=== PATIENT | male | born 1950 | race Caucasian/White ===

== ENCOUNTER 2019-07-26 19:29 | Emergency (ER) | payer OTHER ==
--- OUTSIDE RECORDS SUMMARY | 2019-07-26 19:33 | XMS REPORT | Summary of Care ---
:1950 Author Organization [facility] - Health Address [address] [place] [address] Care Team Providers Name Role Phone Janet Presley Adenike Primary Care Provider Encounter Details Date Type Department Care Team Description 02/23/2019 Orders Only [facility] Doctor Unassigned, No [address] [facility] [place] [address] [address] [place] [address] Allergies No Known Allergiesdocumented as of this encounter (statuses as of 02/23/2019) Medications Medication Sig Dispensed Refills Start Date End Date Status lisinopril 10 mg tablet Take 10 mg by 0 Active mouth daily. metoprolol succinate XL Take 50 mg by 0 Active 50 mg 24 hr tablet mouth daily. cyclobenzaprine 10 mg Take 1 tablet 10 tablet 0 01/22/2019 Active tabletIndications: Acute by mouth at left-sided low back pain bedtime. without sciatica naproxen 500 mg Take 1 tablet 20 tablet 0 01/22/2019 Active tabletIndications: Acute by mouth 2 left-sided low back pain (two) times without sciatica daily with meals. documented as of this encounter (statuses as of 02/23/2019) Active Problems Not on filedocumented as of this encounter (statuses as of 02/23/2019) Social History Tobacco Use Types Packs/Day Years Used Date Never Smoker Smokeless Tobacco: Never Used Alcohol Use Drinks/Week oz/Week Comments Yes occassional Sex Assigned at Date Recorded Not on file Job Start Date Occupation Industry Not on file Not on file Not on file Travel History Travel Start Travel End No recent travel history available. documented as of this encounter Last Filed Vital Signs Not on filedocumented in this encounter Plan of Treatment Health Maintenance Due Date Last Done Comments HEPATITIS C (HCV) SCREEN 1950 DTaP,Tdap,and Td Vaccines (1 - Tdap) 1970 COLONOSCOPY 2001 Zoster Recombinant Vaccine (SHINGRIX) (1 of 2) 2001 PNEUMOCOCCAL VACCINES 65+ (1 of 2 - PCV13) 2016 INFLUENZA VACCINE (#1) 2019 documented as of this encounter Procedures Procedure Name Priority Date/Time Associated Diagnosis Comments ASSIGNMENT OF BENEFITS Routine 02/23/2019 2:04 PM CDT documented in this encounter Results Not on filedocumented in this encounter Insurance Payer Benefit Plan / Subscriber ID Effective Dates Phone Address Type Group MEDICARE MEDICARE PART xxxxxxxxxxx 2016-Jose [phone] [address] Medicare A & B t [id number] [id number] documented as of this encounter
--- OUTSIDE RECORDS SUMMARY | 2019-07-26 19:33 | XMS REPORT | Summary of Care ---
:1950 Author Organization [facility] Address [address] [place] [address] Care Team Providers Name Role Phone Sakina Janet Adenike Primary Care Provider Reason for Visit Reason Comments Foot Pain localized lft foot pain FOOT SWELLING Encounter Details Date Type Department Care Team Description 02/23/2019 Nurse Visit [facility] Unknown, Attending Pain of left lower extremity (Primary Dx); Urgent Care Nurse, [facility] Swelling of left foot [address] [place] [phone] Allergies No Known Allergiesdocumented as of this [...] of this encounter Last Filed Vital Signs Vital Sign Reading Time Taken Comments Blood Pressure 111/53 02/23/2019 2:50 PM CDT Pulse 94 02/23/2019 2:50 PM CDT Temperature 36.9 C (98.5 F) 02/23/2019 2:50 PM CDT Respiratory Rate 17 02/23/2019 2:50 PM CDT Oxygen Saturation 96% 02/23/2019 2:50 PM CDT Inhaled Oxygen Concentration - - Weight 130.9 kg (288 lb 9.6 oz) 02/23/2019 2:50 PM CDT Height 185.4 cm (6' 1") 02/23/2019 2:50 PM CDT Body Mass Index 38.08 02/23/2019 2:50 PM CDT documented in this encounter Progress Notes Maine Yoo RN - 02/23/2019 2:00 PM CDT68 year-old male presents w and family c/o 9/10 localized pain in lft dorsal foot with associated swelling since and worsening. Patient reports taking a [address] last Sun; denies any injuries; denies any h/o DVTs. Patient vs assessed and stable; lft foot swelling observed and pain reported with palpation. Per provider, patient and advised to seek further evaluation and care of s/s at ER of choice. Patient and state that they will go across the road to [facility] ER. Patient assisted to car by wheelchair. documented in this encounter Plan of Treatment Health Maintenance Due Date Last Done Comments HEPATITIS C (HCV) SCREEN 1950 DTaP,Tdap,and Td Vaccines (1 - Tdap) 1970 COLONOSCOPY 2001 Zoster Recombinant Vaccine (SHINGRIX) (1 of 2) 2001 Medicare Wellness Visit 2016 PNEUMOCOCCAL VACCINES 65+ (1 of 2 - PCV13) 2016 INFLUENZA VACCINE (#1) 2019 documented as of this encounter Results Not on filedocumented in this encounter Visit Diagnoses Diagnosis Pain of left lower extremity - Primary Swelling of left foot documented in this encounter Insurance Payer Benefit Plan / Subscriber ID Effective Dates Phone Address Type Group MEDICARE MEDICARE PART xxxxxxxxxxx 2016-Jose [phone] Medicare A & B t 2 [id number] [place] [id number] On license of [facility] (Home) [address] (Work) [id number] documented as of this encounter
--- OUTSIDE RECORDS SUMMARY | 2019-07-26 19:33 | XMS REPORT | Summary of Care ---
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 Hospital, Clinic, or Other Ordered Dose Route Frequency Start Date End Date Status Facility Administered Medication ketorolac (TORADOL) 60 mg IM ONCE 01/22/2019 01/22/2019 Ended injection 60 mgIndications: Acute left-sided low back pain without sciatica documented as of this encounter (statuses as of 01/22/2019) Active Problems Not on filedocumented as of this encounter (statuses as of 01/22/2019) Social History Tobacco Use Types Packs/Day Years [...] Sign Reading Time Taken Comments Blood Pressure 134/82 01/22/2019 6:20 PM CDT Pulse 93 01/22/2019 6:18 PM CDT Temperature 36.9 C (98.4 F) 01/22/2019 6:18 PM CDT Respiratory Rate 18 01/22/2019 6:18 PM CDT Oxygen Saturation 95% 01/22/2019 6:18 PM CDT Inhaled Oxygen Concentration - - Weight 135.9 kg (299 lb 9.6 oz) 01/22/2019 6:18 PM CDT Height 188 cm (6' 2") 01/22/2019 6:18 PM CDT Body Mass Index 38.47 01/22/2019 6:18 PM CDT documented in this encounter Patient Instructions Patient InstructionsKendra Cody FNP - 01/22/2019 6:15 PM CDT Self-Care for Low Back Pain Most people have low back pain now and then. In many cases, it isnt serious and self-care can help. Sometimes low back pain can be a sign of a bigger problem. Call your healthcare provider if your pain returns often or gets worse over time. For the long-term care of your back, get regular exercise,lose any excess weight and learn good posture. Take a short rest Lying down during the day may be helpful for short periods of time if severe pain increases with sitting or standing. Long-term bed rest could be damaging. Reduce pain and swelling Cold reduces swelling. Both cold and heat can reduce pain. Protect your skin by placing a towel between your body and the ice or heat source. For the first few days, apply an ice pack for 15 to20 minutes, several times a day. To make a cold pack, put ice cubes in a plastic bag that seals at the top. After the first few days, try heat for 15 minutes at a time to ease pain. Never sleep on a heating pad. Lndw-wni-lcpkflr medicine can help control pain and swelling. Try aspirin or a non-steroidal anti-inflammatory medicine (NSAID) such as ibuprofen. Exercise Exercise can help your back heal. It also helps your back get stronger and more flexible, preventingany reinjury. Ask your healthcare provider about specific exercises for your back. Use good posture to avoid reinjury When moving, bend at the hips and knees. Dont bend at the waist or twist around. When lifting, keep the object close to your body. Lift heavy items using your legs, not your back. Dont try to lift more than you can handle. When sitting, keep your lower back supported. Use a rolled-up towel as needed. When to call your healthcare provider Seek medical care right away if: You can't stand or walk. You have a temperature over 100.4F (38.0C) You have frequent, painful, or bloody urination. You have severe abdominal pain. You have a sharp, stabbing pain. Your pain is constant. You have pain, tingling, or numbness in your leg. You feel pain in a new area of your back. You notice that the pain isnt decreasing after more than a week. Date Last Reviewed: 08/17/201719995571-4636 [employer]. [address] [place] [address]. All rights reserved. This information is not intended as a substitute for professional medical care. Always follow your healthcare professional's instructions. Back Sprain or Strain Injury to the muscles (strain) or ligaments (sprain) around the spine canbe troubling. Injury may occur after a sudden forceful twisting or bending force such as in a car accident, after a simple awkward movement, or after lifting something heavy with poor body positioning. Inany case, muscle spasm is often present and adds to the pain. Thankfully, most people feel better in 1 to 2 weeks, and most of the rest in 1 to 2 months. Most people can remain active. Unless you had a forceful or traumatic physical injury such asa car accidentor fall, X-rays may not be ordered for the first evaluation of a back sprain or strain. If pain continues and does not respond to medical treatment, your healthcare provider may then order X-rays and other tests. Home care The following guidelines will help you care for your injury at home: When in bed, try to find a comfortable position. A firm mattress is best. Try lying flat on your back with pillows under your knees. You can also try lying on your side with your knees bent up toward your chest and a pillow between your knees. Don't sit for long periods. Try not to take long car rides or take other trips that have you sitting for a long time. This puts more stress on the lower back than standing or walking. During the first 24 to 72 hours after an injury or flare-up, apply an ice pack to the painful area for 20 minutes. Then remove it for 20 minutes. Do this for60 to 90 minutes, or several times a day. This will reduce swelling and pain. Be sure to wrap the ice pack in a thin towel or plastic to protect your skin. You can start with ice, then switch toheat. Heat from a hot shower, hot bath, or heating pad reduces pain and works well for muscle spasms. Put heat on the painful area for 20 minutes, then removefor 20 minutes.Do this for 60to 90 minutes, or several times a day. Do not use a heating pad while sleeping. It can burn the skin. You can alternate theice and heat. Talk with your healthcare provider to find out the best treatment or therapy for your back pain. Therapeutic massage will help relax the back muscles without stretching them. Be aware of safe lifting methods. Do not lift anything over 15 pounds until all of the pain is gone. Medicines Talk to your healthcare provider before using medicines, especially if you have other health problems or are taking other medicines. You may use acetaminophen or ibuprofen to control pain, unless another pain medicine was prescribed. If you have chronic conditions like diabetes, liver or kidney disease, stomach ulcers, or gastrointestinal bleeding, or are taking blood-thinner medicines, talk with your doctor before taking any medicines. Be careful if you are given prescription medicines, narcotics, or medicine for muscle spasm. Theycan cause drowsiness, and affect your coordination, reflexes, and judgment. Do not drive or operate heavy machinery when taking these types of medicines. Only take pain medicine as prescribed by your healthcare provider. Follow-up care Follow up with your healthcare provider, or as advised. You may need physical therapy or more testsif your symptoms get worse. If you had X-rays your healthcare provider may be checking for any broken bones , breaks, or fractures. Bruises and sprains can sometimes hurt as much as a fracture. These injuries can take time to healcompletely. If your symptoms don t improve or they get worse, talk with your healthcare provider. You may need a repeat X-ray or other tests. Call 911 Call 911 if any of the following occur: Trouble breathing Confused Very drowsy or trouble awakening Fainting or loss of consciousness Rapid or very slow heart rate Loss of bowel or bladder control When to seek medical advice Call your healthcare provider right away if any of the following occur: Pain gets worse or spreads to your arms or legs Weakness or numbness in one or both arms or legs Numbness in the groin or genital area Date Last Reviewed: 11/18/201519998059-1479 [employer]. [address] [place] [address]. All rights reserved. This information is not intended as a substitute for professional medical care. Always follow your healthcare professional's instructions. documented in this encounter Progress Notes Laurie Kaplan RN - 01/22/2019 6:15 PM CDT68 year old male has been identified by and name. Verbal consent has been obtained by patient to have an injection, as ordered by the provider. The site was cleaned with an alcohol swab and given intramuscularly (IM). A band aid dressing was then applied to the injection site. The patient tolerated the procedure well and was observed for 20 minutes after the injection for possible reaction. Patient provided with preferred teaching of verbal information on Anaphylaxis. Shows readiness to learn. Verbal/Written instruction teaching provided. Individual is able to read and verbalizes understanding of teaching provided. Signs and Symptoms of Anaphylaxis (severe allergic reaction) are: Tingling, itching or metallic taste in mouth; hives; difficulty breathing; swelling and/ or itching of mouth and/or throat; diarrhea, vomiting, cramps and stomach pain; paleness; loss of consciousness. IF YOU HAVE ANY OF THE SYMPTOMS ABOVE, ACT FAST !!! CALL 911 IMMEDIATELY IF YOU HAVE A PRESCRIBED EPI-PEN PLEASE USE IT NOW. Kendra Valenzuela FNP - 01/22/2019 6:15 PM CDT Cc: Chief Complaint Patient presents with Back Pain lower back pain- left side pain that radiates to leg Aly Zimmerman is a 68 year old male that presents to the clinic for left lower back pain radiating to left thigh since last Monday. 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 Back Pain Location: Lumbar spine Quality: Aching and shooting Radiates to: L posterior upper leg Pain severity: Moderate Onset quality: Sudden Duration: 5 days Timing: Constant Progression: Worsening Chronicity: New Context: lifting heavy objects Context: not falling, not recent illness and not recent injury Relieved by: Nothing Worsened by: Movement Ineffective treatments: Celebrex, Lidocaine patch, and hydrocodone Associated symptoms: no fever, no numbness and no weakness Risk factors: obesity Allergies Aly has No Known Allergies. Medications Outpatient Medications Prior to Visit Medication Sig Dispense Refill lisinopril 10 mg tablet Take 10 mg by mouth daily. metoprolol succinate XL 50 mg 24 hr tablet Take 50 mg by mouth daily. No facility-administered medications prior to visit. Histories Past Medical History: Diagnosis Date Hypertension Past Surgical History: Procedure Laterality Date BICEP TENDON REPAIR Bilateral HERNIA REPAIR SHOULDER ARTHROSCOPY TOTAL KNEE ARTHROPLASTY Bilateral Social History Socioeconomic History Marital status: Spouse name: Not on file Number of children: Not on file Years of education: Not on file Highest education level: Not on file Occupational History Not on file Social Needs Financial resource strain: Not on file Food insecurity: Worry: Not on file Inability: Not on file Transportation needs: Medical: Not on file Non-medical: Not on file Tobacco Use Smoking status: Never Smoker Smokeless tobacco: Never Used Substance and Sexual Activity Alcohol use: Yes Comment: occassional Drug use: Not on file Sexual activity: Not on file Lifestyle Physical activity: Days per week: Not on file Minutes per session: Not on file Stress: Not on file Relationships Social connections: Talks on phone: Not on file Gets together: Not on file Attends quaker service: Not on file Active member of club or organization: Not on file Attends meetings of clubs or organizations: Not on file Relationship status: Not on file Intimate partner violence: Fear of current or ex partner: Not on file Emotionally abused: Not on file Physically abused: Not on file Forced sexual activity: Not on file Other Topics Concern Not on file Social History Narrative Not on file No family history on file. Review of Systems Constitutional: Negative for chills, fatigue and fever. Musculoskeletal: Positive for back pain (left lower). Negative for arthralgias, joint swelling and myalgias. Skin: Negative for rash. Neurological: Negative for syncope, weakness and numbness. Psychiatric/Behavioral: Negative for agitation and confusion. Vital Signs BP 134/82 | Pulse 93 | Temp 36.9 C (98.4 F) (Oral) | Resp 18 | Ht 6' 2" (1.88 m) | Wt 299 lb 9.6 oz (135.9 kg) | SpO2 95% | BMI 38.47 kg/m Physical Exam Constitutional: He is oriented to person, place, and time. He appears well- developed and well-nourished. No distress. HENT: Head: Normocephalic and atraumatic. Eyes: Conjunctivae are normal. Neck: Normal range of motion. Cardiovascular: Normal rate, regular rhythm, normal heart sounds and intact distal pulses. Pulmonary/Chest: Effort normal and breath sounds normal. Musculoskeletal: Cervical back: He exhibits normal range of motion and no bony tenderness. Thoracic back: He exhibits no bony tenderness. Lumbar back: He exhibits decreased range of motion and tenderness. He exhibits no bony tenderness and no deformity. Back: Negative straight-leg raise test bilaterally. Neurological: He is alert and oriented to person, place, and time. He has normal strength. No sensory deficit. Gait normal. Skin: Skin is warm and dry. No rash noted. Psychiatric: He has a normal mood and affect. His behavior is normal. Thought content normal. Nursing note and vitals reviewed. Assessment/Plan 1. Acute left-sided low back pain without sciatica - reassured patient based on description of symptoms and exam findings, back pain appears to be muscular. - ketorolac (TORADOL) injection 60 mg - cyclobenzaprine 10 mg tablet; Take 1 tablet by mouth at bedtime. Dispense: 10 tablet; Refill: 0 - naproxen 500 mg tablet; Take 1 tablet by mouth 2 (two) times daily with meals. Dispense: 20 tablet; Refill: 0 - counseled patient to avoid lifting heavy objects, rest for a few days, then return to normal activity. - educated to use heating pad over area for comfort. - educated about back stretches/exercises to perform. - may take acetaminophen with Naproxen for pain. - may use lidocaine patches/ Salon Pas patches PRN for pain. - Advised to follow up with PCP, return to Urgent Care, or go to the nearest Emergency Department sooner for any new, worsening, persistent, or concerning symptoms. Plan of care, desired health behaviors, goals, and medication discussed with patient. Education resources provided and reviewed with AVS. Patient/guardian/family verbalized understanding & agrees to plan of care. This visit did not involve counseling and coordination that comprised more than 50% of the visit time. If applicable, the [place] [employer] database was accessed to review any controlled substance prescription claims data. The [employer] prescription claims data in [facility] was reviewed to assess patient compliance with the medication treatment plan. YAQUELIN Ramos 01/22/2019 6:45 PM documented in this encounter Plan of Treatment Health Maintenance Due Date Last Done Comments HEPATITIS C (HCV) SCREEN 1950 DTaP,Tdap,and Td Vaccines (1 - Tdap) 1970 COLONOSCOPY 2001 Zoster Recombinant Vaccine (SHINGRIX) (1 of 2) 2001 PNEUMOCOCCAL VACCINES 65+ (1 of 2 - PCV13) 2016 INFLUENZA VACCINE 02/17/2019 documented as of this encounter Results Not on filedocumented in this encounter Visit Diagnoses Diagnosis Acute left-sided low back pain without sciatica - Primary documented in this encounter Administered Medications Medication Order MAR Action Action Date Dose Rate Site ketorolac (TORADOL) Given 01/22/2019 6:39 PM 60 mg Left injection 60 mg CDT Dorsogluteal-IM 60 mg, Intramuscular, ONCE, 1 dose, 01/22/19 at 1845, Routine, 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 Medicare A & B t 2 [id number] [phone] [facility] (Home) [address] (Work) [id number] documented as of this encounter
--- OUTSIDE RECORDS SUMMARY | 2019-07-26 19:33 | XMS REPORT ---
:1950 Author Organization [facility] Address [facility] [address] [place] [address] Care Team Providers Name Role Phone Unavailable Unavailable Unavailable Payers Payer Name Policy Type Policy Number Effective Date Expiration Date Problems This patient has no known problems. Allergies, Adverse Reactions, Alerts Allergy Allergy Status Severity Reaction(s) Onset Inactive Treating Comments Name Type Date Date Clinician No Known DA Active U 2019-02 Drug -24 Allergies 00:00:0 0 No Known DA Active U 2019-02 Drug -23 Allergies 00:00:0 0 No Known DA Active U 2018-09 Drug -02 Allergies 00:00:0 0 SEASONAL DA Active RI 2018-09 ALLERGIES -02 00:00:0 0 No Known DA Active U 2018-04 Drug -27 Allergies 00:00:0 0 No Known DA Active U 2016-01 Drug -14 Allergies 00:00:0 0 Medications This patient has no known medications. Results Test Description Test Time Test Comments Text Results Atomic Results Result Comments - XR FLUORO FOR SPINE 2019-03-12 10:51:00 Patient Name: ROYAL YOLY SANTOYO INJ Unit No: [id number] EXAMS: CPT CODE: [id number] XR FLUORO FOR SPINE INJ 91649 LUMBAR TRANSFORAMINAL INJECTION REFERRING PHYSICIAN: PREOPERATIVE DIAGNOSIS: Degenerative Lumbar Disc Disease. POSTOPERATIVE DIAGNOSIS: Right lumbar radiculopathy PROCEDURES PERFORMED 1. Fluoroscopically guided needle localization of the right L3, right L4, right L5, right S1 spinal nerve/nerves with transforaminal epidural steroid injection/injections. 2. Transforaminal epidurogram/epidurograms at right L3, right L4, right L5, right S1. FINDINGS: Poor filling all. Concordant provocation right L4 hip, right L5 leg. Pain relief-100%. ANTIBIOTIC: Cefazolin ESTIMATED BLOOD LOSS: Minimal ANESTHESIA: (TIVA )Total intravenous anesthetic (patient intolerant to sedatives and hypnotics) COMPLICATIONS: None DETAILS OF PROCEDURE: After obtaining stable vital signs, informed consent and IV access, with no known contraindications to proceeding, the patient was taken to the fluoroscopy suite and placed in a prone position with all extremities padded and appropriate monitors placed. A sterile prep and drape was performed over the lumbosacral spine. Using fluoroscopic visualization at each level the insertion site was marked for a paravertebral approach to the foramen. Using standard technique, a 25 gauge needle was advanced to the base of the pedicle. In AP view, final positioning was obtained outside the 6 on the clock position on the pedicle. Then, 1 ml of Isovue-300 contrast was injected to produce the epidurograms. No paresthesias were elicited with needle insertion or injection and there were no signs of intravascular or intrathecal uptake. Then, with 1 ml of 4% lidocaine and 10 mg of triamcinolone was injected incrementally with frequent negative aspirations. There were no signs of intravascular or intrathecal uptake. Each subsequent level was done using the same technique and medications. The patient's vital signs remained stable. The patient was taken to the PACU in good condition. at 1051 Reported and signed by: Jack Jones M.D. [facility] NAME: ROYAL YOLY SANTOYO [address] [facility] PHYS: DOCUD - Jack Jones MD [place], [place] [address] : 1950 AGE: 68 SEX: M LOC: [facility] PHONE #: [phone] EXAM DATE: 03/12/2019 STATUS: REG [facility] FAX #: [phone] RAD #: D/C DT PAGE 1 Signed Report (CONTINUED) Patient Name: ROYAL YOLY SANTOYO Unit No: [id number] EXAMS: CPT CODE: [id number] XR FLUORO FOR SPINE INJ 83651 <Continued> CC: Jack Jones MD Technologist: KEN BRUNO RT(R) Transcribed D/ (1059) t.[email or web address] [facility] NAME: ROYAL YOLY SANTOYO [address] [facility] PHYS: Jack Kaminski MD [place], [place] [address] : 1950 AGE: 68 SEX: M LOC: [place] PHONE #: [phone] EXAM DATE: 03/12/2019 STATUS: REG [facility] FAX #: [phone] RAD #: D/C DT PAGE 2 Signed Report Patient Name: ROYAL YOLY SANTOYO Unit No: [id number] EXAMS: CPT CODE: [id number] XR FLUORO FOR SPINE INJ 55455 <Continued> Orig Print D/T: S: 03/12/2019 (6482) [facility] NAME: ROYAL YOLY SANTOYO [address] [facility] PHYS: Jack Kaminski MD [place], [place] [address] : 1950 AGE: 68 SEX: M LOC: [place] PHONE #: [phone] EXAM DATE: 03/12/2019 STATUS: REG [facility] FAX #: [phone] RAD #: D/C DT PAGE 3 Signed Report - MRI L-SPINE W/O CONT 2019-02-26 00:42:00 Patient Name: ROYAL YOLY SANTOYO Unit No: [id number] EXAMS: CPT CODE: [id number] MRI L-SPINE W/O CONT [id number] MRI OF THE LUMBAR SPINE: DIAGNOSIS: 1. At L1-2, moderate to marked disc degeneration. No central canal or foraminal stenosis. 2. At L2-3, marked disc degeneration. No central canal or foraminal stenosis. Solid interbody fusion. 3. At L3-4, moderate disc degeneration. Mild central canal stenosis. Moderate left foraminal right foramen is within normal limits. 4. At L4-5, moderate to marked disc degeneration. Moderate central canal stenosis. Mild to moderate facet arthropathy. 3 mm left foraminal disc protrusion. Moderate to marked left foraminal and mild to moderate right foraminal stenosis. 5. At L5-S1, marked disc degeneration. Moderate central canal stenosis. Moderate left facet and mild right facet arthropathy. There is a 4 mm right foraminal disc osteophyte complex which slightly impinges the right L5 nerve root. Marked right foraminal stenosis. Mild left foraminal stenosis. 6. There is a moderate to marked dextroscoliosis of the lumbar spine. 7. High signal lesion in the right renal pelvis has an appearance compatible with a intrapelvic cyst. COMMENT: COMPARISON: No prior exams available. Sagittal T1, T2 and STIR and axial T1 and T2-weighted sequences are obtained of the lumbar spine. The lumbar vertebrae are within normal limits in signal. The findings are as above. The conus is in the expected location. at 0042 Reported and signed by: Jaden Romero MD CC: Jack Jones MD Technologist: Elida Mckoy, RT(R) Transcribed D/ (41) [facility] NAME: ROYAL YOLY SANTOYO [address] [place] [address] PHYS: Jack Kaminski MD : 1950 AGE: 68 SEX: M [place] [phone] LOC: Y.MRI PHONE #: [phone] EXAM DATE: 02/25/2019 STATUS: DEP CLI FAX #: [phone] RAD #: D/C DT PAGE 1 Signed Report Patient Name: ROYAL YOLY SANTOYO Unit No: [id number] EXAMS: CPT CODE: [id number] MRI L-SPINE W/O CONT 09563 <Continued> Orig Print D/T: S: 02/26/2019 (44) [facility] NAME: ROYAL YOLY SANTOYO [address] [place] [address] PHYS: Jack Kaminski MD : 1950 AGE: 68 SEX: M [place] [phone] LOC: Y.MRI PHONE #: [phone] EXAM DATE: 02/25/2019 STATUS: [facility] FAX #: [phone] RAD #: D/C DT PAGE 2 Signed Report BASIC METABOLIC PANEL 2018-10-09 06:36:00 Test Item Value Reference Range Comments SODIUM (test code=NA) 138 mmol/L 136-145 POTASSIUM (test code=K) 4.5 mmol/L 3.5-5.1 CHLORIDE (test code=CL) 103.0 mmol/L 98-107 CARBON DIOXIDE (test code=CO2) 25.9 mmol/L 21-32 GLUCOSE (test code=GLU) 80 mg/dL 70-110 BLOOD UREA NITROGEN (test 19 mg/dL 7-18 code=BUN) GLOMERULAR FILTRATION RATE (test 70.5 >60 Unit of measure: mL/min/1.73 code=GFR) [id number] Range:Healthy Adults >90 mL/min/1.73 m2 For Chronic Kidney Disease: Stage II Mild Decrease in GFR 60-90 Stage III Moderate Decrease in GFR 30-59 Stage IV Severe Decrease in GFR 15-29 Stage V Kidney Failure <15 CREATININE (test code=CREAT) 1.05 mg/dL 0.55-1.30 CALCIUM (test code=CA) 7.9 mg/dL 8.2-10.1 HGB [id number] 05:59:00 Test Item Value Reference Range Comments HEMOGLOBIN (test code=HGB) 14.4 g/dL 12-16 HEMATOCRIT (test code=HCT) 44.8 % 37-47 COMPREHENSIVE METABOLIC [id number] 10:44:00 Test Item Value Reference Range Comments SODIUM (test code=NA) 139 mmol/L 136-145 POTASSIUM (test code=K) 4.5 mmol/L 3.5-5.1 CHLORIDE (test code=CL) 102.0 mmol/L 98-107 CARBON DIOXIDE (test code=CO2) 26.8 mmol/L 21-32 GLUCOSE (test code=GLU) 83 mg/dL 70-110 BLOOD UREA NITROGEN (test 17 mg/dL 7-18 code=BUN) GLOMERULAR FILTRATION RATE 72.0 >60 Unit of measure: (test code=GFR) mL/min/1.73 [id number] Range:Healthy Adults >90 mL/min/1.73 m2 For Chronic Kidney Disease: Stage II Mild Decrease in GFR 60-90 Stage III Moderate Decrease in GFR 30-59 Stage IV Severe Decrease in GFR 15-29 Stage V Kidney Failure <15 CREATININE (test code=CREAT) 1.03 mg/dL 0.55-1.30 TOTAL PROTEIN (test code=PROT) 7.2 g/dL 6.4-8.2 ALBUMIN (test code=ALB) 3.7 g/dL 3.4-5.0 GLOBULIN (test code=GLOB) 3.5 g/dL 2.2-4.2 ALBUMIN/GLOBULIN RATIO (test 1.1 0.7-2.0 code=A/G) CALCIUM (test code=CA) 8.9 mg/dL 8.2-10.1 BILIRUBIN TOTAL (test 0.45 mg/dL 0.2-1.00 code=BILT) SGOT/AST (test code=AST) 24.0 U/L 15-37 SGPT/ALT (test code=ALT) 25.0 U/L 12-78 Please note new normal range. ALKALINE PHOSPHATASE TOTAL 65 U/L 46-116 (test code=ALKP) PROTHROMBIN [id number] 10:36:00 Test Item Value Reference Range Comments PROTHROMBIN TIME PATIENT 12.1 secs 10.1-12.5 (test code=PTP) INTERNATIONAL NORMAL RATIO 1.07 <2.0 RECOMMENDED THERAPEUTIC RANGE (test code=INR) FOR ORAL ANTICOAGULANTTREATMENT: CONDITION INRProphylaxis of venous thrombosis in 2.0 - 3.0 high-risk medical or surgical patientsTreatment of venous thrombosis 2.0 - 3.0Prevention of embolism 2.0 - 3.0Prevention of recurrent embolism, or 3.0 - 4.5 patients with mechanical prosthetic intravascular valves IS PATIENT ON ANTICOAGULANTS ? NVas Lab been notified if Patient is on Heparin Drip? NOIf Yes, orderCBC, OCCULT BLOOD, PT every other day NTHROMBOPLASTIN TIME [id number] 10:36:00 Test Item Value Reference Range Comments PTT ACTIVATED (test code=APTT) 32.9 secs 24.9-37.0 IS PATIENT ON ANTICOAGULANTS ? NHas Lab been notified if Patient is on Heparin Drip? NOIf Yes, orderCBC, OCCULT BLOOD, PT every other day NCBC W/AUTO [id number] 10:30:00 Test Item Value Reference Range Comments WHITE BLOOD CELL (test code=WBC) 7.3 K/mm3 5.7-10.5 RED BLOOD CELL (test code=RBC) 5.44 M/mm3 4.2-5.4 HEMOGLOBIN (test code=HGB) 16.6 g/dL 12-16 HEMATOCRIT (test code=HCT) 51.2 % 37-47 MEAN CELL VOLUME (test code=MCV) 94 fL 80-98 MEAN CELL HGB (test code=MCH) 30.5 pg 27-34 MEAN CELL HGB CONCENTRATION (test code=MCHC) 32.4 g/dL 30.8-34.1 RED CELL DISTRIBUTION WIDTH (test code=RDW) 14.4 % 11-16 PLT (test code=PLT) 267 K/mm3 130-400 MEAN PLATELET VOLUME (test code=MPV) 8.9 fL 8.9-12.1 NEUTROPHIL % (test code=NT%) 67.2 % 45-70 LYMPHOCYTE % (test code=LY%) 18.7 % 20-40 MONOCYTE % (test code=MO%) 10.3 % 3-10 EOSINOPHIL % (test code=EO%) 1.9 % 1-5 BASOPHIL % (test code=BA%) 1.2 % 0.0-1.1 NEUTROPHIL # (test code=NT#) 4.87 K/mm3 2.00-7.50 LYMPHOCYTE # (test code=LY#) 1.36 K/mm3 1.50-4.00 MONOCYTE # (test code=MO#) 0.75 K/mm3 0.2-0.8 EOSINOPHIL # (test code=EO#) 0.14 K/mm3 0.04-0.4 BASOPHIL # (test code=BA#) 0.09 K/mm3 0.02-0.10 MANUAL DIFF REQUIRED (test code=MDIFF) NO MANUAL DIFF NUCLEATED RED BLOOD CELL (test code=NRBC) 0 % 0-0
--- OUTSIDE RECORDS SUMMARY | 2019-07-26 19:34 | XMS REPORT | Summary of Care ---
:1950 Author Organization [facility] Address [address] [place] [id number] Care Team Providers Name Role Phone Janet Presley Primary Care Provider Reason for Referral (Routine) Status Reason Specialty Diagnoses / Referred By Referred To Procedures Contact Contact New Request Procedures Kaylie Obrien UNILATERAL VENOUS III, PA DUPLEX LOWER [address] [place] [address] [place] [address] (Routine) Status Reason Specialty Diagnoses / Referred By Referred To Procedures Contact Contact New Request Procedures Kaylie Obrien UNILATERAL VENOUS III, PA DUPLEX LOWER [address] [place] [address] [place] [address] Radiology Services ([facility]) Status Reason Specialty Diagnoses / Referred By Referred To Procedures Contact Contact New Request Diagnostic Diagnoses Left foot pain Kaylie Obrien Radiology Procedures XR FOOT 3+ VW LEFT III, PA [address] [place] [address] [place] [address] Radiology Services ([facility]) Status Reason Specialty Diagnoses / Referred By Referred To Procedures Contact Contact New Request Diagnostic Diagnoses Left foot pain Kaylie Obrien Radiology Procedures XR FOOT 3+ VW LEFT III, PA [address] [place] [address] [place] [address] Reason for Visit Reason Comments Foot Pain Auth/Cert Status Reason Specialty Diagnoses / Referred By Referred To Procedures Contact Contact Emergency Medicine Diagnoses SWELLING IN LT FOOT/LEG [facility] [address] [place] [address] [place] [address] Encounter Details Date Type Department Care Team Description 02/23/2019 Emergency ADC-Emergency Kaylie Obrien III, Left foot pain ( Primary Dx); Department PA Elevated uric acid in blood; [address] [place] [address] [address] [facility] Elevated d-dimer; [place] [address] [place] [address] Acute gout of left foot, unspecified cause [phone] Allergies No Known Allergiesdocumented as of this encounter (statuses as of 02/23/2019) Medications Medication Sig Dispensed Refills Start Date End Date Status lisinopril 10 mg Take 10 mg by 0 Active tablet mouth daily. metoprolol succinate Take 50 mg by 0 Active XL 50 mg 24 hr tablet mouth daily. naproxen 500 mg Take 1 tablet 20 tablet 0 01/22/2019 Active tabletIndications: by mouth 2 Acute left-sided low (two) times back pain without daily with sciatica meals. predniSONE 10 mg Take 4 12 tablet 0 02/23/2019 Active tabletIndications: tablets by 9 Left foot pain, mouth daily Elevated uric acid in for 3 days. blood, Elevated d-dimer traMADol (ULTRAM) 50 Take 1 tablet 9 tablet 0 02/23/2019 Active mg tabletIndications: by mouth Left foot pain, every 8 Elevated uric acid in (eight) hours blood, Elevated as needed for d-dimer Pain (scale 4-6). acetaminophen Take 3 60 tablet 0 02/23/2019 Active (TYLENOL) 325 mg tablets by 9 tabletIndications: mouth 4 Left foot pain, (four) times Elevated uric acid in daily for 5 blood, Elevated days. This is d-dimer the maximum safe dose for a healthy adult. cyclobenzaprine 5 mg Take 1 tablet 20 tablet 0 02/23/2019 Active tabletIndications: by mouth 3 Left foot pain, (three) times Elevated uric acid in daily. blood, Elevated d-dimer cyclobenzaprine 10 mg Take 1 tablet 10 tablet 0 01/22/2019 Discontinued tabletIndications: by mouth at 9 Acute left-sided low bedtime. back pain without sciatica cyclobenzaprine 5 mg Take 1 tablet 9 tablet 0 02/23/2019 Discontinued tabletIndications: by mouth 3 9 Left foot pain, (three) times Elevated uric acid in daily. blood, Elevated d-dimer cyclobenzaprine 5 mg Take 1 tablet 20 tablet 0 02/23/2019 Discontinued tabletIndications: by mouth 3 9 Left foot pain, (three) times Elevated uric acid in daily. blood, Elevated d-dimer documented as of this encounter (statuses as of 02/23/2019) Active Problems No known active problemsdocumented as of this encounter (statuses as of 2018) Social History Tobacco Use Types Packs/Day Years [...] Sign Reading Time Taken Comments Blood Pressure 147/71 02/23/2019 6:00 PM CDT Pulse 86 02/23/2019 6:00 PM CDT Temperature 36.9 C (98.4 F) 02/23/2019 2:59 PM CDT Respiratory Rate 18 02/23/2019 6:00 PM CDT Oxygen Saturation 96% 02/23/2019 6:00 PM CDT Inhaled Oxygen Concentration - - Weight 131.1 kg (289 lb) 02/23/2019 2:59 PM CDT Height - - Body Mass Index 38.13 02/23/2019 2:50 PM CDT documented in this encounter Discharge Instructions Kaylie Baum III, PA - 02/23/2019 @@@@@@@@@@@@@@@@@@@@@@@@@@@@@@@@@@@@@@@@@@@@@@@@@@@@@ [facility] RETURN TO WORK / SCHOOL EXCUSE Royal Zimmerman WAS SEEN IN THE ER AND DISCHARGED 02/23/2019 TODAY, 5:57 PM & May return to Work / School / Incarceration on 02/24/19 with No limitations unless indicated below. ___The following limitations apply until pt is seen by Physician and cleared to return to normal activity. ___ Light duty ___ No Sports ___ No work ___ Do not return until fever free for 24 hours. ___ No school [employer] [facility] [address] [place] [address] [place] [address] If you are unprepared to return to work tomorrow due to pain please give this note to your employer and make a follow up appointment with your MD for further evaluation and limitations. ### The patient may have been given Narcotic pain medications during their stay in the ED that may show up on a Drug Screen. The hospital discharge paper work will identify these medications. @@@@@@@@@@@@@@@@@@@@@@@@@@@@@@@@@@@@@@@@@@@@@@@@@@@@@ Thank you for trusting us with your care. The emergency room is the first stop in the medical management of your complaint . Our primary pupose is to identify life threatening emergancies and to rapidly address those issues. We are releasing you today after evaluation for emergency or life threatening problems related to your complaint. At this time we are comfortable that your condition is stable enough to go home, take oral medications and follow up for further care. If you can't afford a doctor OR MEDICATIONS consider [facility], [address] [place] [address]; [phone] Medications [employer] WILL SHOW YOU WHERE YOU CAN GET YOUR MEDICATIONS CHEAPEST. 1. Call your doctor and let them know you were seen for ICD-10-CM ICD-9-CM 1. Left foot pain M79.672 729.5 2. Elevated uric acid in blood E79.0 790.6 3. Elevated d-dimer R79.89 790.92 2. Schedule a follow up within 3 days of your ER visit. 3. Take your prescriptions to the pharmacy and get them filled today. 4. Take the medications as prescribed and until completed. 5. You have been referred for further care 6. You may need additional tests Your doctors will help you figure out what you need and how to get them done. 7. Please read all paperwork provided to you. Additional instructions See Attached AttachmentsThe following attachments cannot be sent through Care Everywhere.Gout , Eating to Prevent (Jordanian)Uric Acid (Blood) (Jordanian)Gout, What is (Jordanian) documented in this encounter Plan of Treatment [...] encounter Procedures Procedure Name Priority Date/Time Associated Comments Diagnosis URINALYSIS STAT 02/23/2019 4:07 Left foot pain Results for this PM CDT procedure are in the results section. LACTIC ACID WHOLE STAT 02/23/2019 4:05 Left foot pain Results for this BLOOD PM CDT procedure are in the results section. D-DIMER STAT 02/23/2019 3:55 Left foot pain Results for this PM CDT procedure are in the results section. CBC WITH DIFFERENTIAL STAT 02/23/2019 3:54 Left foot pain Results for this PM CDT procedure are in the results section. CBC WITH DIFF Routine 02/23/2019 3:54 Left foot pain Results for this PM CDT procedure are in the results section. COMP. METABOLIC PANEL STAT 02/23/2019 3:54 Left foot pain Results for this (45650) PM CDT procedure are in the results section. URIC ACID STAT 02/23/2019 3:54 Left foot pain Results for this PM CDT procedure are in the results section. XR FOOT 3+ VW LEFT ANAYELI 02/23/2019 3:33 Left foot pain Results for this PM CDT procedure are in the results section. NOTICE OF PRIVACY Routine 02/23/2019 2:38 PRACTICES PM CDT documented in this encounter Results URINALYSIS (02/23/2019 4:07 PM CDT) APPEARANCE Clear Clear [facility] COLOR Yellow Yellow [facility] PH 6.0 4.8 - 8.0 [facility] SP GRAVITY 1.020 1.003 - 1.030 [facility] GLU U QUAL Negative Negative [facility] BLOOD Negative Negative [facility] KETONES Negative Negative [facility] PROTEIN Negative Negative [facility] UROBILIN 0.2 mg/dL 0-1.0 mg/dL [facility] BILIRUBIN Negative Negative [facility] NITRITE Negative Negative [facility] LEUK VERNON Negative Negative [facility] RBC/HPF 2 0 - 3 HPF [facility] WBC/HPF 0 0 - 5 HPF [facility] BACTERIA Few (A) Negative [facility] SQ EPITH 1 HPF [facility] Specimen Urine - URINE, CLEAN CATCH Performing Organization Address [facility] [place] Phone Number [facility] CLIA: [id number], [address] [place], [place] [address] [address] Lactic Acid Whole Blood (02/23/2019 4:05 PM CDT) LACTIC ACID 1.87 0.50 - 2.20 mmol/L [facility] Specimen Blood - ARM, RIGHT Performing Organization Address [facility] [place] Phone Number [facility] CLIA: [id number], [address] [place] [address] D-DIMER (02/23/2019 3:55 PM CDT) D-DIMER 1.88 (H) <0.41 g/mL (FEU) [facility] Specimen Blood - VENOUS Narrative Performed At This test may be used in conjunction with a [facility] clinical pretest probability (PTP) assessment model to exclude pulmonary embolism (PE) and as an aid in the diagnosis of deep venous thrombosis (DVT) in outpatients suspected of PE or DVT. A D-Dimer value less than 0.50 g/ml (FEU) has a negative predicative value of 98 to 100% (95% CI) for the exclusion of pulmonary embolism (PE) and 95 to 100% (95% CI) as an aid in the diagnosis of deep vein thrombosis (DVT) when there is low or moderate pretest probability of PE or DVT. D-Dimer values are expressed in initial fibrinogen equivalent units (FEU). Performing Organization Address [facility] [place] Phone Number [facility] CLIA: [id number], [address] [place] [address] CBC WITH DIFFERENTIAL (02/23/2019 3:54 PM CDT) WBC 9.22 4.20 - 10.70 [facility] 10*3/L HOSPITAL [facility]ORY RBC 5.09 4.26 - 5.52 [facility] 10*6/L [facility] HGB 15.2 12.2 - 16.4 [facility] g/dL H[facility]ITAL [facility] HCT 48.2 38.4 - 49.3 % [facility] MCV 94.7 81.7 - 95.6 fL [facility] MCH 29.9 26.1 - 32.7 pg [facility] MCHC 31.5 31.2 - 35.0 [facility] g/dL [facility] RDW-SD 48.0 38.5 - 51.6 fL [facility] RDW-CV 13.7 12.1 - 15.4 % [facility] PLT 259 150 - 328 [facility] 10*3/L [facility] MPV 8.8 (L) 9.8 - 13.0 fL [facility] NRBC/100 WBC 0.0 0.0 - 10.0 /100 [facility] WBCs [facility] NRBC x10^3 <0.01 10*3/L [facility] GRAN MAT (NEUT) % 70.9 % [facility] IMM GRAN % 1.00 % [facility] LYMPH % 12.5 % [facility] MONO % 13.3 % [facility] EOS % 1.6 % [facility] BASO % 0.7 % [facility] GRAN MAT x10^3(ANC) 6.54 1.99 - 6.95 [facility] 10*3/uL HOSPITAL [facility] IMM GRAN x10^3 0.09 (H) 0.00 - 0.06 [facility] 10*3/uL HOSPITAL [facility] LYMPH x10^3 1.15 1.09 - 3.23 [facility] 10*3/uL HOS[facility]ITAL [facility] MONO x10^3 1.23 (H) 0.36 - 1.02 [facility] 10*3/uL HOSPITAL [facility] EOS x10^3 0.15 0.06 - 0.53 [facility] 10*3/uL [facility] BASO x10^3 0.06 0.01 - 0.09 [facility] 10*3/uL [facility]ITAL [facility] Specimen Blood - VENOUS Performing Organization Address City/[facility]/Zipcode Phone Number [facility] CLIA: [id number], [address] [place] [address] URIC ACID (02/23/2019 3:54 PM CDT) URIC ACID 8.8 (H) 3.6 - 8.0 mg/dL [facility] Specimen Blood - VENOUS Performing Organization Address City/[facility]/Zipcode Phone Number [facility] CLIA: [id number], [address] [place] [address] COMP. METABOLIC PANEL (40655) (02/23/2019 3:54 PM CDT) NA 145 135 - 145 mmol/L [facility] K 3.8 3.5 - 5.0 mmol/L [facility] CL 108 98 - 108 mmol/L [facility] CO2 TOTAL 26 23 - 31 mmol/L [facility] AGAP 11 2 - 16 [facility] BUN 16 7 - 23 mg/dL [facility] GLUCOSE 79 70 - 110 mg/dL [facility] CREATININE 0.91 0.60 - 1.25 [facility] mg/dL [facility] TOTAL BILI 0.9 0.1 - 1.1 mg/dL [facility] CALCIUM 8.9 8.6 - 10.6 mg/dL [facility] T PROTEIN 7.1 6.3 - 8.2 g/dL [facility] ALBUMIN 3.9 3.5 - 5.0 g/dL [facility] ALK PHOS 114 34 - 122 U/L [facility] ALT(SGPT) 18 9 - 51 U/L [facility] AST(SGOT) 23 13 - 40 U/L [facility] eGFR Calculation 83.1 mL/min/1.73m2 [facility] (Non-) [facility] eGFR Calculation 100.7 mL/min/1.73m2 [facility] () [facility] Specimen Blood - VENOUS Narrative Performed At Association of Glomerular Filtration Rate (GFR) [facility] and Staging of Kidney Disease* + + +- + | GFR (mL/min/1.73 m2)| With Kidney Damage|Without Kidney Damage + + +- + |>90| Stage one| Normal + + +- + |60-89|S tage two| Decreased GFR + + +- + |30-59|S tage three| Stage three + + +- + |15-29|S tage four | Stage four + + +- + |<15 (or dialysis)|Stage five | Stage five + + +- + *Each stage assumes the associated GFR level has been in effect for at least three months.Stages 1 to 5, with or without kidney disease, indicate chronic kidney disease. Notes: Determination of stages one and two (with eGFR >59mL/min/1.73 m2) requires estimation of kidney damage for at least three months as defined by structural or functional abnormalities of the kidney, manifested by either: Pathological abnormalities or Markers of kidney damage (including abnormalities in the composition of the blood or urine or abnormalities in imaging tests). Performing Organization Address City/State/Zipcode Phone Number [facility] CLIA: [id number], [address] [place] [address] [facility] [address] XR FOOT 3+ VW LEFT (02/23/2019 3:33 PM CDT) Specimen Impressions Performed At [facility] No acute osseous abnormality. Narrative Performed At EXAM: XR FOOT 3+ VW LEFT PACS/VR/DOSE HISTORY: 68 years-old Male left foot pain at midfoot dorsum COMPARISON: None. FINDINGS: Noacute fracture or dislocation. The joint spaces are maintained. Marginal osteophytes is noted at the tibiotalar joint. Small plantar and posterior calcaneal enthesophytes are noted. Mild dorsal foot soft tissue swelling is seen. Procedure Note [facility], Radiant Results Inft User - 02/23/2019 3:42 PM CDT EXAM: XR FOOT 3+ VW LEFT HISTORY: 68 years-old Male left foot pain at midfoot dorsum COMPARISON: None. FINDINGS: No acute fracture or dislocation. The joint spaces are maintained. Marginal osteophytes is noted at the tibiotalar joint. Small plantar and posterior calcaneal enthesophytes are noted. Mild dorsal foot soft tissue swelling is seen. IMPRESSION No acute osseous abnormality. Performing Organization Address City/State/Zipcode Phone Number [facility] documented in this encounter Visit Diagnoses Diagnosis Left foot pain - Primary Pain in limb Elevated uric acid in blood Other abnormal blood chemistry Elevated d-dimer Abnormal coagulation profile Acute gout of left foot, unspecified cause documented in this encounter Administered Medications Medication Order MAR Action Action Date Dose Rate Site dexamethasone (DECADRON) injection Given 02/23/2019 5:12 PM CDT 10 mg 10 mg 10 mg, Slow IV Push, ONCE, 1 dose, 02/23/19 at 1800, Routine HYDROcodone-acetaminophen (NORCO 5) 5-325 Given 02/23/2019 5:12 PM CDT 1 tablet mg tablet 1 tablet 1 tablet, Oral, ONCE, 1 dose, 02/23/19 at 1800, ANAYELI ketorolac (TORADOL) injection 15 mg Given 02/23/2019 5:11 PM CDT 15 mg 15 mg, Slow IV Push, ONCE, 1 dose, 02/23/19 at 1800, ANAYELI, 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 Medicare A & B t 2 [id number] [address] [phone] (Home) [address] (Work) [id number] documented as of this encounter"
[2019-07-26] MEDS ORDERED: THIAMINE 200 MG/2 ML INJ ONE ×2 (20:10→20:16)
[2019-07-26] MEDS ORDERED: FOLIC ACID 5 MG/ML VIAL ONE ×2 (20:11→20:17)
[2019-07-26] MEDS ORDERED: NA CHLORIDE 0.9% 1,000 ML ONE ×2 (20:11→20:17)
[2019-07-26 20:29] LABS: Absolute Lymphocytes (CBC) 1.4 K/uL (0.7-4.9); Basophils % 0.9 % (0-1.3); Hematocrit 52.7 % (39.6-49.0); Lymphocytes % 10.4 % (15.3-44.8); MPV 6.9 fL (7.6-11.3); RBC Red Blood Cell Count 5.69 M/uL (4.33-5.43)
[2019-07-26 20:30] LABS: Protime INR 1.1
--- NOTE | 2019-07-26 20:31 | RAD REPORT ---
EXAM DESCRIPTION: CT - Head Brain Wo Cont - 07/26/2019 8:18 pm CLINICAL HISTORY: DIZZINESS Headache, drowsiness COMPARISON: No comparisons TECHNIQUE: All CT scans are performed using dose optimization technique as appropriate and may inclu de automated exposure control or mA/KV adjustment according to patient size. FINDINGS: No intracranial hemorrhage, hydrocephalus or extra-axial fluid collection.No areas of brai n edema or evidence of midline shift. 5 mm colloid cyst is suspected. The paranasal sinuses and mastoids are clear. The calvarium is intact. IMPRESSION: No acute intracranial abnormality. 5 mm colloid cyst suspected. Nonemergent MRI brain imaging would be suggested for confirmation.
--- NOTE | 2019-07-26 20:34 | RAD REPORT ---
EXAM DESCRIPTION: RAD - Chest Single View - 07/26/2019 8:16 pm CLINICAL HISTORY: COUGH Chest pain. COMPARISON: No comparisons FINDINGS: Portable technique limits examination quality. The lungs are grossly clear. The heart is normal in size. No displaced fractures. IMPRESSION: No acute intrathoracic process suspected.
[2019-07-26 20:45] LABS: ALT/SGPT 25 U/L (12-78); AST/SGOT 25 U/L (15-37); Albumin 3.7 g/dL (3.4-5.0); Alkaline Phosphatase 81 U/L (45-117); BUN Blood Urea Nitrogen 21 mg/dL (7-18); Bicarbonate 28 mmol/L (21-32); Bilirubin Direct 0.2 mg/dL (0-0.2); Bilirubin Total 0.8 mg/dL (0.2-1.0); Glucose Level 98 mg/dL (74-106); Magnesium 2.4 mg/dL (1.8-2.4); NT PRO-BNP 163 pg/mL (<125); Potassium 4.1 mmol/L (3.5-5.1); Protein, Total 7.7 g/dL (6.4-8.2); Sodium Level 139 mmol/L (136-145); Troponin (Emerg Dept Use Only) < 0.02 ng/mL (0.0-0.045)
--- NOTE | 2019-07-26 20:46 | RAD REPORT ---
EXAM DESCRIPTION: US - CP - 07/26/2019 8:39 pm CLINICAL HISTORY: Dizziness;Slurred speech CVA symptomology COMPARISON: No comparisons TECHNIQUE: Real-time sonographic evaluation of both carotid systems was performed. Doppler interroga tion was performed with waveform tracing bilaterally. FINDINGS: Normal high resistance waveforms are noted in both external carotid arteries. The common c arotid arteries and internal carotid arteries show normal low resistance waveforms. No significant plaque formation is seen. Mild intimal thickening is noted bilaterally. Peak systolic and end diastolic velocity values and the ICA/CCA ratios are in the non-hemodynamically significant r maya. Antegrade flow seen in both vertebral arteries. IMPRESSION: No significant atherosclerotic changes noted. No evidence of a hemodynamically significant stenosis.
--- NOTE | 2019-07-26 21:09 | ER ---
Nurse's Notes [facility] Name: Royal Zimmerman Age: 69 yrs Sex: Male : 1950 Arrival Date: 07/26/2019 Time: 19:35 Bed 19 Private MD: Diagnosis: Weakness;Altered mental status, unspecified;Elevated white blood cell count Presentation: 07/26 19:39 Presenting complaint: states: "This morning when I got up he was laying on the aj1 couch and he's usually up early so I woke him up a little later, we have a boy staying with us so I asked him if he woke him up and he seemed confused, and he starts a sentence and he'll stop in the middle and he won't finish it" Patient answers questions appropriately in triage. Transition of care: patient was not received from another setting of care. Onset of symptoms was July 26, 2019. Risk Assessment: Do you want to hurt yourself or someone else? Patient reports no desire to harm self or others. Initial Sepsis Screen: Does the patient meet any 2 criteria? Altered Mental Status. HR > 90 bpm. No. Patient's initial sepsis screen is negative. Does the patient have a suspected source of infection? No. Patient's initial sepsis screen is negative. Care prior to arrival: None. 19:39 Method Of Arrival: Ambulatory [facility] 19:39 Acuity: TYRONE 3 aj1 Triage Assessment: 19:44 General: Appears in no apparent distress. comfortable, Behavior is calm, cooperative, aj1 appropriate for age. Pain: Denies pain. EENT: No signs and/or symptoms were reported regarding the EENT system. Neuro: Level of Consciousness is awake, alert, obeys commands, Oriented to person, place, time, situation, Moves all extremities. Full function Gait is steady, Speech is normal, Facial symmetry appears normal, Denies weakness. Historical: - Allergies: 19:44 No Known Allergies; aj1 - Home Meds: 19:44 lisinopril 10 mg Oral tab 1 tab once daily [Active]; metoprolol succinate 50 mg oral aj1 Tb24 1 tab once daily [Active]; multivitamin oral cap daily [Active]; Claritin 10 mg Oral tab 1 tab once daily [Active]; - PMHx: 19:44 Hypertension; aj1 - Immunization history:: Flu vaccine is up to date. - Coronavirus screen:: The patient has NOT traveled to [place], [place], or [place] in the past 14 days. - Social history:: Smoking status: Patient/guardian denies using tobacco. - Family history:: not pertinent. - Ebola Screening: : Patient denies travel to an Ebola-affected area in the 21 days before illness onset. Screenin:50 Abuse screen: Denies threats or abuse. Nutritional screening: No deficits noted. fu Tuberculosis screening: No symptoms or risk factors identified. Fall Risk None identified. Assessment: 19:45 General: Appears in no apparent distress. Behavior is calm, cooperative, appropriate fu for age. Pain: Denies pain. Neuro: Level of Consciousness is awake, alert, obeys commands, confused, Oriented to person, place, Museum Assistant are equal bilaterally Moves all extremities. Denies weakness numbness headache. Cardiovascular: Denies chest pain, nausea, vomiting. Respiratory: Airway is patent Breath sounds are clear bilaterally. Derm: No signs and/or symptoms reported regarding the dermatologic system. Musculoskeletal: No signs and/or symptoms reported regarding the musculoskeletal system. 21:00 Reassessment: Patient appears in no apparent distress at this time. No changes from fu previously documented assessment. Patient and/or family updated on plan of care and expected duration. Pain level reassessed. Patient is alert, oriented x 3, equal unlabored respirations, skin warm/dry/pink. patient family at bedside.. 22:00 Reassessment: dheeraj Nelson to patient room, talking to patient and to patient's family. fu 22:40 Reassessment: Patient appears in no apparent distress at this time. No changes from fu previously documented assessment. Patient and/or family updated on plan of care and expected duration. Pain level reassessed. Patient is alert, oriented x 3, equal unlabored respirations, skin warm/dry/pink. family wants to talk to MD, notified. 23:20 Reassessment: Received call from [facility] asking patient WBC and vitals signs..fu 07/27 00:20 Reassessment: Report called to Mark Lindsay RN in [facility]. fu Vital Signs: 07/26 19:44 BP 125 / 66; Pulse 106; Resp 20; Temp 97.6; Pulse Ox 96% on R/A; Pain 0/10; aj1 21:57 BP 114 / 85; Pulse 93; Resp 16; Pulse Ox 97% on R/A; rv 22:00 BP 123 / 82; Pulse 83; Resp 17; Pulse Ox 97% on R/A; fu 22:24 BP 2 / ???; fu 23:00 BP 142 / 88; Pulse 93; Resp 22; Temp 98.5; Pulse Ox 96% on R/A; Pain 0/10; fu 02/08 00:00 BP 123 / 84; Pulse 89; Resp 20; Pulse Ox 97% on R/A; Pain 0/10; fu NIH Stroke Scale Scores: 02 19:56 NIHSS Score: 0 [facility] ED Course: 19:35 Patient arrived in ED. jg7 19:42 Triage completed. aj1 19:44 Arm band placed on Patient placed in an exam room. aj1 19:47 Dav Vaughan MD is Attending Physician. marcia 19:55 Chito iHggins, RN is Primary Nurse. fu 20:17 XRAY Chest (1 view) In Process Unspecified. EDMS 20:21 CT Head Brain wo Cont In Process Unspecified. EDMS 20:39 US Carotid Artery Bilateral In Process Unspecified. EDMS 20:40 Inserted saline lock: 18 gauge in right forearm, using aseptic technique. Blood fu collected. 20:50 No provider procedures requiring assistance completed. fu 20:50 First set of blood cultures drawn. fu 20:51 Patient has correct armband on for positive identification. Placed in gown. Bed in low fu position. Side rails up X 1. 21:08 Davie Nelson is Hospitalizing Provider. marcia 21:50 Second set of blood cultures drawn by wy. fu 0208 01:20 Patient transferred, IV remains in place. fu Administered Medications: 07/26 20:19 Drug: NS 0.9% 1000 ml Route: IV; Rate: 1 bolus; Site: right antecubital; rv 22:19 Follow up: Response: No adverse reaction fu 20:20 Drug: foLIC Acid 1 mg Route: IVPB; Site: right forearm; rv 20:20 Drug: Thiamine 100 mg Route: IV; Rate: bolus; Site: right forearm; rv 21:24 Drug: Aspirin Chewable Tablet 324 mg Route: PO; fu 22:24 Follow up: BP 2 / ???; Response: No adverse reaction fu 21:25 Drug: Rocephin 1 grams Route: IV; Rate: per protocol; Site: right antecubital; fu 22:25 Follow up: Response: No adverse reaction fu Outcome: 21:09 Decision to Hospitalize by Provider. [facility] 23:05 ER care complete, transfer ordered by . marcia 07/27 01:20 Transferred by ground EMS to [facility]. fu Condition: stable Instructed on the need for transfer. 01:28 Patient left the ED. fu NIH Stroke Scale - NIH Stroke Score Date: 07/26/2019 Time: 19:56 Total Score = 0 1a. Level of Consciousness (LOC) - 0(Alert) 1b. Level of Consciousness (LOC) (Year \\T\\ Age) - 0(Both) 1c. LOC Commands (Open \\T\\ Closes Eyes/Joiner Apprentice) - 0(Both) 2. Best Gaze (Lateral Gaze Paresis) - 0(Normal) 3. Visual Field Loss - 0(No visual loss) 4. Facial Palsy - 0(Normal) 5a. Left Arm: Motor (10-second hold) - 0(No drift) 5b. Right Arm: Motor (10-second hold) - 0(No drift) 6a. Left Leg: Motor (5-second hold - always test supine) - 0(No drift) 6b. Right Leg: Motor (5-second hold - always test supine) - 0(No drift) 7. Limb Ataxia (finger/nose \\T\\ heel/walsh - test with eyes open) - 0(Absent) 8. Sensory Loss (pinprick arms/legs/face) - 0(Normal) 9. Best Language: Aphasia (description/naming/reading) - 0(No aphasia) 10. Dysarthria (speech clarity - read or repeat words) - 0(Normal) 11. Extinction and Inattention (visual/tactile/auditory/spatial/personal) - 0(No abnormality) Initials: marcia Signatures: Dispatcher [employer] Laurie Alcaraz, RN RN Dav Farley MD MD cha Umadhay, Felix, RN RN fu Vicente, Ronaldo, RN RN rv Gutierrez, Jessica jg7
--- NOTE | 2019-07-26 21:10 | EDPHYS ---
Physician Documentation [facility] Name: Royal Zimmerman Age: 69 yrs Sex: Male : 1950 Arrival Date: 07/26/2019 Time: 19:35 Bed 19 Private MD: ED Physician Dav Vaughan HPI: 07/26 19:56 This 69 yrs old Male presents to ER via Ambulatory with complaints of Altered marcia Mental Status. 19:56 The patient presents with confusion. Onset: The symptoms/episode began/occurred 1 marcia day(s) ago. Possible causes: CVA or TIA, unknown. Associated signs and symptoms: The patient has no apparent associated signs or symptoms. Patient's baseline: Neuro: alert and fully oriented. The patient has not experienced similar symptoms in the past. Historical: - Allergies: 19:44 No Known Allergies; aj1 - Home Meds: 19:44 lisinopril 10 mg Oral tab 1 tab once daily [Active]; metoprolol succinate 50 mg oral aj1 Tb24 1 tab once daily [Active]; multivitamin oral cap daily [Active]; Claritin 10 mg Oral tab 1 tab once daily [Active]; - PMHx: 19:44 Hypertension; aj1 - Immunization history:: Flu vaccine is up to date. - Coronavirus screen:: The patient has NOT traveled to [place], [place], or [place] in the past 14 days. - Social history:: Smoking status: Patient/guardian denies using tobacco. - Family history:: not pertinent. - Ebola Screening: : Patient denies travel to an Ebola-affected area in the 21 days before illness onset. ROS: 19:56 Constitutional: Negative for fever, chills, and weight loss, Eyes: Negative for injury, marcia pain, redness, and discharge, ENT: Negative for injury, pain, and discharge, Neck: Negative for injury, pain, and swelling, Cardiovascular: Negative for chest pain, palpitations, and edema, Respiratory: Negative for shortness of breath, cough, wheezing, and pleuritic chest pain, Abdomen/GI: Negative for abdominal pain, nausea, vomiting, diarrhea, and constipation, Back: Negative for injury and pain, : Negative for injury, bleeding, discharge, and swelling, MS/Extremity: Negative for injury and deformity, Skin: Negative for injury, rash, and discoloration, Psych: Negative for depression, anxiety, suicide ideation, homicidal ideation, and hallucinations, Allergy/Immunology: Negative for hives, rash, and allergies, Endocrine: Negative for neck swelling, polydipsia, polyuria, polyphagia, and marked weight changes, Hematologic/Lymphatic: Negative for swollen nodes, abnormal bleeding, and unusual bruising. 19:56 Neuro: Positive for altered mental status, weakness. Exam: 19:56 Constitutional: This is a well developed, well nourished patient who is awake, alert, marcia and in no acute distress. Head/Face: Normocephalic, atraumatic. Eyes: Pupils equal round and reactive to light, extra-ocular motions intact. Lids and lashes normal. Conjunctiva and sclera are non-icteric and not injected. Cornea within normal limits. Periorbital areas with no swelling, redness, or edema. ENT: Nares patent. No nasal discharge, no septal abnormalities noted. Tympanic membranes are normal and external auditory canals are clear. Oropharynx with no redness, swelling, or masses, exudates, or evidence of obstruction, uvula midline. Mucous membranes moist. Neck: Trachea midline, no thyromegaly or masses palpated, and no cervical lymphadenopathy. Supple, full range of motion without nuchal rigidity, or vertebral point tenderness. No Meningismus. Chest/axilla: Normal chest wall appearance and motion. Nontender with no deformity. No lesions are appreciated. Cardiovascular: Regular rate and rhythm with a normal S1 and S2. No gallops, murmurs, or rubs. Normal PMI, no JVD. No pulse deficits. Respiratory: Lungs have equal breath sounds bilaterally, clear to auscultation and percussion. No rales, rhonchi or wheezes noted. No increased work of breathing, no retractions or nasal flaring. Abdomen/GI: Soft, non-tender, with normal bowel sounds. No distension or tympany. No guarding or rebound. No evidence of tenderness throughout. Back: No spinal tenderness. No costovertebral tenderness. Full range of motion. Male : Normal genitalia with no discharge or lesions. Skin: Warm, dry with normal turgor. Normal color with no rashes, no lesions, and no evidence of cellulitis. MS/ Extremity: Pulses equal, no cyanosis. Neurovascular intact. Full, normal range of motion. Psych: Awake, alert, with orientation to person, place and time. Behavior, mood, and affect are within normal limits. 19:56 Neuro: Orientation: is normal, appropriate for stated age, no acute changes, Mentation: is normal, appropriate for stated age, no acute changes, Memory: remote memory is impaired, Cranial nerves: grossly normal, is grossly normal based on the patient's age, no acute changes, Cerebellar function: is grossly normal, is grossly normal based on the patient's age, no acute changes, Motor: moves all fours, Sensation: is normal, no obvious gross deficits, appropriate no acute changes, Gait: not tested. seizure activity, is not displayed by the patient. Vital Signs: 19:44 BP 125 / 66; Pulse 106; Resp 20; Temp 97.6; Pulse Ox 96% on R/A; Pain 0/10; aj1 21:57 BP 114 / 85; Pulse 93; Resp 16; Pulse Ox 97% on R/A; rv 22:00 BP 123 / 82; Pulse 83; Resp 17; Pulse Ox 97% on R/A; fu 22:24 BP 2 / ???; fu 23:00 BP 142 / 88; Pulse 93; Resp 22; Temp 98.5; Pulse Ox 96% on R/A; Pain 0/10; fu 0208 00:00 BP 123 / 84; Pulse 89; Resp 20; Pulse Ox 97% on R/A; Pain 0/10; fu NIH Stroke Scale Scores: 07/26 19:56 NIHSS Score: 0 marcia MDM: 19:47 Patient medically screened. [facility] 19:58 Data reviewed: vital signs, nurses notes, lab test result(s), EKG, radiologic studies, [facility] CT scan, plain films. 07/26 19:55 Order name: Basic Metabolic Panel; Complete Time: 21:06 [facility] 07/26 19:55 Order name: CBC with Diff; Complete Time: 22:22 [facility] 07/26 19:55 Order name: LFT's; Complete Time: 21:06 [facility] 07/26 19:55 Order name: Magnesium; Complete Time: 21:06 [facility] 07/26 19:55 Order name: NT PRO-BNP; Complete Time: 21:06 [facility] 07/26 19:55 Order name: PT-INR; Complete Time: 21:06 [facility] 07/26 19:55 Order name: Troponin (emerg Dept Use Only); Complete Time: 21:06 [facility] 07/26 19:55 Order name: XRAY Chest (1 view); Complete Time: 21:06 marcia 07/26 19:55 Order name: Urine Culture [facility] 07/26 19:55 Order name: Sed Rate; Complete Time: 22:22 [facility] 07/26 20:03 Order name: Procalcitonin; Complete Time: 21:06 marcia 07/26 20:03 Order name: Blood Culture Adult (2) [facility] 07/26 21:53 Order name: Urine Dipstick--Ancillary (enter results); Complete Time: 22:22 sp 07/26 23:44 Order name: AMMONIA [facility] 07/26 19:55 Order name: EKG; Complete Time: 19:56 [facility] 07/26 19:55 Order name: Cardiac monitoring; Complete Time: 20:22 [facility] 07/26 19:55 Order name: EKG - Nurse/Tech; Complete Time: 20:09 [facility] 07/26 19:55 Order name: IV Saline Lock; Complete Time: 20:22 [facility] 07/26 19:55 Order name: Labs collected and sent; Complete Time: 20:22 [facility] 07/26 19:55 Order name: O2 Per Protocol; Complete Time: 20:22 [facility] 07/26 19:55 Order name: O2 Sat Monitoring; Complete Time: 20:22 [facility] 07/26 19:55 Order name: CT Head Brain wo Cont; Complete Time: 21:06 [facility] 07/26 19:55 Order name: Urine Dipstick-Ancillary (obtain specimen); Complete Time: 22:27 [facility] 07/26 19:55 Order name: US Carotid Artery Bilateral; Complete Time: 21:06 [facility] Administered Medications: 20:19 Drug: NS 0.9% 1000 ml Route: IV; Rate: 1 bolus; Site: right antecubital; rv 22:19 Follow up: Response: No adverse reaction fu 20:20 Drug: foLIC Acid 1 mg Route: IVPB; Site: right forearm; rv 20:20 Drug: Thiamine 100 mg Route: IV; Rate: bolus; Site: right forearm; rv 21:24 Drug: Aspirin Chewable Tablet 324 mg Route: PO; fu 22:24 Follow up: BP 2 / ???; Response: No adverse reaction fu 21:25 Drug: Rocephin 1 grams Route: IV; Rate: per protocol; Site: right antecubital; fu 22:25 Follow up: Response: No adverse reaction fu Disposition: 07/26/19 23:05 Transfer ordered to [facility]. Diagnosis are Weakness, Altered mental status, unspecified, Elevated white blood cell count. - Reason for transfer: Higher level of care. - Accepting physician is to [facility], neuro. - Condition is Stable. - Problem is new. - Symptoms have improved. NIH Stroke Scale - NIH Stroke Score Date: 07/26/2019 Time: 19:56 Total Score = 0 1a. Level of Consciousness (LOC) - 0(Alert) 1b. Level of Consciousness (LOC) (Year \T\ Age) - 0(Both) 1c. LOC Commands (Open \T\ Closes Eyes/Space Studies Faculty Member) - 0(Both) 2. Best Gaze (Lateral Gaze Paresis) - 0(Normal) 3. Visual Field Loss - 0(No visual loss) 4. Facial Palsy - 0(Normal) 5a. Left Arm: Motor (10-second hold) - 0(No drift) 5b. Right Arm: Motor (10-second hold) - 0(No drift) 6a. Left Leg: Motor (5-second hold - always test supine) - 0(No drift) 6b. Right Leg: Motor (5-second hold - always test supine) - 0(No drift) 7. Limb Ataxia (finger/nose \T\ heel/walsh - test with eyes open) - 0(Absent) 8. Sensory Loss (pinprick arms/legs/face) - 0(Normal) 9. Best Language: Aphasia (description/naming/reading) - 0(No aphasia) 10. Dysarthria (speech clarity - read or repeat words) - 0(Normal) 11. Extinction and Inattention (visual/tactile/auditory/spatial/personal) - 0(No abnormality) Initials: marcia Signatures: Dispatcher [employer] Laurie Alcaraz RN RN ajDav Friedman MD MD cha Umadhay, Felix, RN RN fu Vicente, Ronaldo, RN RN rv Corrections: (The following items were deleted from the chart) 23:03 21:09 Hospitalization Ordered by Davie Nelson for Inpatient Admission. marcia Preliminary diagnosis is Altered mental status, unspecified; Weakness. Bed requested for Telemetry/MedSurg (Inpatient). Status is Inpatient Admission. Condition is Fair. Problem is new. Symptoms have improved. [facility] 23:40 23:05 07/26/2019 23:[address] [facility]. Diagnosis is Weakness; Altered mental status, unspecified. Reason for transfer: Higher level of care. Accepting physician is to [facility]. Condition is Stable. Problem is new. Symptoms have improved. [facility] 07/27 01:28 07/26 23:40 07/26/2019 23:05 Transfer ordered to [facility]. Diagnosis is Weakness; Altered mental status, unspecified; Elevated white blood cell count. Reason for transfer: Higher level of care. Accepting physician is to [facility]. Condition is Stable. Problem is new. Symptoms have improved. [facility]
[2019-07-26] MEDS ORDERED: ASPIRIN 81 MG CHEWABLE TABLET ONE (21:22)
[2019-07-26] MEDS ORDERED: CEFTRIAXONE/SWI 1gm 1 GM/10 ML SYR ONE (21:22)
[2019-07-26 22:19] LABS: Urine Blood TRACE (NEG); Urine Glucose NEGATIVE (NEG); Urine Protein NEGATIVE (NEG); Urine Specific Gravity 1.025 (1.005-1.030)
[2019-07-27 01:37] VITALS: TEMP 97.6
[2019-07-27 01:38] VITALS: O2SAT 97
[2019-07-27 01:40] VITALS: BP 123/82
--- NOTE | 2019-07-28 06:29 | EKG ---
Test Date: 2019-07-26 Test Time: 20:07:13 Research Asst: YAMIL MEASUREMENT RESULTS: Intervals: Rate: 104 IL: 150 QRSD: 100 QT: 352 QTc: 462 [place]: P: 38 IL: 150 QRS: 20 T: 45 INTERPRETIVE STATEMENTS: Sinus tachycardia Possible Left atrial enlargement Incomplete right bundle branch block Borderline ECG Compared to ECG 01/15/2015 16:59:14 Incomplete right bundle-branch block now present Sinus rhythm no longer present Electronically Signed On 07-28-19 06:28:58 CLERK TYPIST by Jose Steel
== END 2019-07-27 01:28 | disposition short-term general hospital (02) ==
LOC: ER 19:29
DX: R53.1 Weakness (principal); D72.829 Elevated white blood cell count, unspecified; I10 Essential (primary) hypertension
CPT/HCPCS: 93005; 87040 ×2; 87088; 85025; 87086; 80048; 36415; 82140; 83735; 85610; 80076; 85652; 81003; 84484; 84145; 83880; 70450; 71045; 93880; 96375; 96374; 99285; J3411 ×2; J0696; J7030 ×2